=== PATIENT | female | born 1970 | race American Indian/Alaskan Native ===

== ENCOUNTER 2016-10-04 21:53 | Emergency (ER) | payer BC | END 2016-10-05 00:36 | disposition left against medical advice (07) | LOC: ED 21:53 | DX: R22.0 Localized swelling, mass and lump, head (principal); Z53.21 Procedure and treatment not carried out due to patient leaving prior to being seen by health care provider ==

== ENCOUNTER 2019-11-19 10:35 | Emergency (ER) | payer BC, OTHER ==
[2019-11-19] MEDS ORDERED: MORPHINE 4 MG/1 ML INJ IV ONE (11:21)
[2019-11-19] MEDS ORDERED: SODIUM CHLORIDE 0.9% 1000 ML 1,000 ML IV ONE (11:21)
[2019-11-19] MEDS ORDERED: ONDANSETRON 4 MG/2 ML INJ IV ONE (11:21)
--- NOTE | 2019-11-19 11:24 | Emergency Department Report ---
ED Abdominal Pain HPI - General Chief Complaint: Abdominal Pain Stated Complaint: VOMITING DIARRHEA ABD PAIN Time Seen by Provider: 11/19/19 11:18 Source: patient Mode of arrival: Ambulatory Limitations: No Limitations - History of Present Illness Initial Comments: Patient is 48 years old female with history of lupus. Patient presented to the ER with abdominal pain, nausea vomiting and diarrhea started all of a sudden last night. Patient described her abdominal pain as diffuse crampy in nature with no radiation. Patient denied any fever or chills. No chest pain or shortness of breath. MD Complaint: abdominal pain -: Last night Location: diffuse Radiation: none Migration to: no migration Severity scale (0 -10): 10 Quality: cramping Consistency: constant - Related Data Allergies Allergy/AdvReac Type Severity Reaction Status Date / Time No Known Allergies Allergy Unverified 10/21/15 08:51 ED Review of Systems ROS: Stated complaint: VOMITING DIARRHEA ABD PAIN Other details as noted in HPI Comment: All other systems reviewed and negative Constitutional: denies: chills, fever Respiratory: denies: cough, shortness of breath, SOB with exertion Cardiovascular: denies: chest pain, palpitations Gastrointestinal: abdominal pain, nausea, vomiting, diarrhea Neurological: denies: headache, weakness, numbness, paresthesias, confusion, abnormal gait ED Past Medical Hx - Past Medical History Previous Medical History?: Yes Additional medical history: Lupus - Surgical History Past Surgical History?: No - Social History Smoking Status: Current Every Day Smoker Substance Use Type: Alcohol ED Physical Exam - General Limitations: No Limitations General appearance: alert, in distress (Secondary to pain.) - Head Head exam: Present: atraumatic, normocephalic, normal inspection - Eye Eye exam: Present: normal appearance - ENT ENT exam: Present: normal exam, normal orophraynx, mucous membranes moist - Neck Neck exam: Present: normal inspection, full ROM. Absent: tenderness, meningismus, lymphadenopathy, thyromegaly - Respiratory Respiratory exam: Present: normal lung sounds bilaterally - Cardiovascular Cardiovascular Exam: Present: regular rate, normal rhythm, normal heart sounds - GI/Abdominal GI/Abdominal exam: Present: soft, normal bowel sounds. Absent: distended, tenderness, guarding, rebound, rigid, organomegaly, mass, bruit, pulsatile mass, hernia - Extremities Exam Extremities exam: Present: normal inspection, full ROM, normal capillary refill. Absent: tenderness, pedal edema, joint swelling, calf tenderness - Back Exam Back exam: Present: normal inspection, full ROM. Absent: CVA tenderness (R), CVA tenderness (L) - Neurological Exam Neurological exam: Present: alert, oriented X3, CN II-XII intact, normal gait, reflexes normal - Psychiatric Psychiatric exam: Present: normal mood - Skin Skin exam: Present: warm, intact, normal color ED Course Vital Signs 11/19/19 11/19/19 11/19/19 10:44 11:29 12:04 Temperature 97.8 F Pulse Rate 87 Respiratory 22 22 20 Rate Blood Pressure 152/126 Blood Pressure [Left] O2 Sat by Pulse 96 Oximetry 11/19/19 11/19/19 12:46 14:13 Temperature 98.7 F Pulse Rate 70 58 L Respiratory 22 18 Rate Blood Pressure Blood Pressure 130/68 139/71 [Left] O2 Sat by Pulse 98 98 Oximetry ED Medical Decision Making - Lab Data Result diagrams: 11/19/19 11:09 11/19/19 11:09 - Radiology Data Radiology results: report reviewed - Medical Decision Making Patient is 48 years old female with history of lupus. Patient presented to the ER with abdominal pain, nausea vomiting and diarrhea started all of a sudden last night. Patient described her abdominal pain as diffuse crampy in nature with no radiation. Patient denied any fever or chills. No chest pain or shortness of breath. Patient stated that she is feeling much better. Nausea completely resolved. Labs reviewed and is unremarkable. CT abdomen and pelvis is negative for acute finding. Patient given prescription for Zofran and advised to follow-up with her primary care physician in the next 2 to 3 days and to return to the ER if she develop any new symptoms. Critical care attestation.: If time is entered above; I have spent that time in minutes in the direct care of this critically ill patient, excluding procedure time. ED Disposition Clinical Impression: Abdominal pain, Nausea & vomiting Disposition: - TO HOME OR SELFCARE Is pt being admited?: No Condition: Stable Instructions: Abdominal Pain (ED) Referrals: PRIMARY CARE, [Primary Care Provider] - 3-5 Days
[2019-11-19 11:45] LABS: Basophils # (Auto) 0.1 K/mm3 (0.0-0.1); Basophils % (Auto) 1.1 % (0.0-1.8); Eosinophils % (Auto) 0.2 % (0.0-4.3); Hematocrit 37.4 % (30.3-42.9); Hemoglobin 12.3 gm/dl (10.1-14.3); Lymphocytes % (Auto) 29.5 % (13.4-35.0); Mean Corpuscular HGB Conc 33 % (30-34); Mean Corpuscular Volume 92 fl (79-97); Monocytes # (Auto) 0.5 K/mm3 (0.0-0.8); Monocytes % (Auto) 7.7 % (0.0-7.3); Platelet Count 339 K/mm3 (140-440); Red Blood Count 4.08 M/mm3 (3.65-5.03); Red Cell Distribution Width 13.7 % (13.2-15.2)
[2019-11-19] MEDS ORDERED: METOCLOPRAMIDE 10 MG/2 ML INJ IV ONE (11:46)
[2019-11-19] MEDS ORDERED: fentaNYL 250 MCG/5 ML INJ IV ONE (11:46)
[2019-11-19 12:00] LABS: Alanine Aminotransferase 12 units/L (7-56); Albumin 4.6 g/dL (3.9-5); BUN/Creatinine Ratio 11; Blood Urea Nitrogen 8 mg/dL (7-17); Hemolysis Index 13
[2019-11-19] MEDS ORDERED: fentaNYL 100 MCG/2 ML INJ IV ONE (12:00)
[2019-11-19] MEDS ORDERED: PANTOPRAZOLE 40 MG INJ IV ONE (12:02)
--- NOTE | 2019-11-19 12:58 | Cat Scan Report ---
CT ABDOMEN AND PELVIS WITH IV CONTRAST INDICATION: Left upper abdominal pain. TECHNIQUE: Following the administration of intravenous contrast, multiple axial CT images of the abdo men and pelvis were acquired. Sagittal and coronal reformats were obtained. All CT performed at this facility utilize dose reduction techniques including automated exposure control, iterative reconstru ction and weight based dosing when appropriate to reduce patient radiation dose to as low as reasonab ly achievable. COMPARISON: No prior studies are available for comparison. FINDINGS: Limited imaging of the bilateral lung bases demonstrates no acute abnormality. Abdomen: The liver, gallbladder, spleen, pancreas, bilateral adrenal glands and bilateral kidneys colin w no evidence of acute abnormality. There is no evidence of bowel obstruction or free air. The append ix is visualized and appears normal. Pelvis: There is a small amount of endometrial fluid. The urinary bladder appears grossly normal. No large amount of free pelvic fluid is visualized. Bones and Soft Tissues: Evaluation of bony and soft tissue structures demonstrates no evidence of acu te abnormality. IMPRESSION: 1. No CT evidence of acute inflammatory or obstructive process within the abdomen or pelvis. 2. Small amount of endometrial fluid. Signer Name: Diana Lind MD Signed: 11/19/2019 12:53 PM Workstation Name: [id number]
[2019-11-19 14:39] LABS: Bilirubin,Urine NEG (Negative); Blood,Urine NEG (Negative); Color,Urine Straw (Yellow); Protein,Urine <15 mg/dL mg/dL (Negative); Urobilinogen,Urine < 2.0 mg/dL (<2.0)
[2019-11-19 15:22] VITALS: BP 139/60
== END 2019-11-19 15:21 | disposition home or self-care (01) ==
LOC: ED 10:35
DX: R10.84 Generalized abdominal pain (principal); R11.2 Nausea with vomiting, unspecified; F17.200 Nicotine dependence, unspecified, uncomplicated
CPT/HCPCS: 36415; 74177; 80053; 81001; 83690; 84484; 85025; 93005; 93010; 96361; 96374; 96375; 99284; C9113; J2270; J2405; J2765; J3010; J7030; Q9967

== ENCOUNTER 2020-08-09 14:03 | Outpatient (CLI) | payer OTHER | END 2020-08-09 14:04 | disposition home or self-care (01) | LOC: LABHHL 14:03 | PROVIDERS: ATTEND Surgery | DX: N60.01 Solitary cyst of right breast (principal) | CPT/HCPCS: 87075; 87116 ==

== ENCOUNTER 2020-08-14 12:55 | Outpatient (CLI) | payer OTHER ==
--- NOTE | 2020-08-14 15:08 | Ultrasound Report ---
ULTRASOUND-GUIDED LEFT BREAST ASPIRATION INDICATION: Recent history of sudden development of breast swelling, pain, and tenderness. Aspiration was performed last week by Dr. Chapman. Known abscess. Continued pain and swelling. Near the end o f a course of antibiotic therapy. COMPARISON: Left breast ultrasound 08/09/2020, 08/05/2020 CONSENT: Procedure was discussed at length in advance with the patient. Possible risks and benefits w ere discussed including the possibility of bleeding. Postbiopsy care was discussed. Opportunity for q uestions was provided. Patient is not on anticoagulant therapy. Patient reports allergies only to lat ex. PROCEDURE: Timeout was performed. The retroareolar superficial collection with significant internal d ebris was targeted sonographically. This was shown to measure approximately 3.9 cm in greatest diamet er. Using aseptic technique and under local anesthesia, with real-time sonographic guidance, the area of interest was aspirated using an 18-gauge needle. An initial lateral approach extended into the co llection but resulted in only minimal aspirate though this was seen to be frankly purulent. On remova l of the needle, there was a small amount of drainage through the tract of this purulent material. A second approach was made from a superior direction, again extending well into the collection. Approxi mately 3 cc of mixed purulent material with blood was aspirated with difficulty. No additional aspira tion could be performed despite variation in needle tip placement in multiple areas of the collection . Substantial collection remained after the procedure. Aspirate was placed into a sterile test tube a nd sent to pathology for Gram stain and culture and sensitivity. Site was secured. Patient tolerated the procedure well and left the department in good condition without obvious complication. IMPRESSION: Successful ultrasound-guided left breast aspiration Signer Name: Iglesia Giron MD Signed: 08/14/2020 3:04 PM Workstation Name: [id number]
== END 2020-08-14 12:56 | disposition home or self-care (01) ==
LOC: SPVWC 12:55
PROVIDERS: ATTEND Surgery
DX: N61.0 Mastitis without abscess (principal); N60.02 Solitary cyst of left breast; F17.210 Nicotine dependence, cigarettes, uncomplicated; Z79.899 Other long term (current) drug therapy
CPT/HCPCS: 87116; 88112

== ENCOUNTER 2021-04-30 12:32 | Outpatient (CLI) | payer OTHER ==
--- NOTE | 2021-05-01 08:23 | Mammography Report ---
DIGITAL SCREENING MAMMOGRAM WITH TOMOSYNTHESIS WITH CAD, 04/30/2021 CLINICAL INFORMATION / INDICATION: Routine Screening Mammography. TECHNIQUE: Digital bilateral 2D and 3D mammography with tomosynthesis was obtained in the craniocaud al and mediolateral oblique projections. Computer-Aided Detection (CAD) analysis was used for interp retation of this study. COMPARISON: 10/21/2015 FINDINGS: Breast Density: There are scattered areas of fibroglandular density. No dominant mass, suspicious calcifications, or architectural distortion in either breast. No interval change. IMPRESSION: No mammographic evidence of malignancy. Follow up recommendation: Routine yearly BI-RADS Category 1: Negative. A "normal" or negative report should not discourage follow up or biopsy of a clinically significant f inding. A written summary of these findings will be mailed to the patient. The patient will be entered into a mammography reporting system which will generate a reminder letter for the patient's next appointmen t at the appropriate interval. The [employer] recommends yearly mammograms starting at age 40 and continuing as l eduardo as a woman is in good health. Breast MRI is recommended for women with an approximate 20-25% or greater lifetime risk of breast cancer, including women with a strong family history of breast or ova kana cancer or who have been treated for Hodgkin's disease. Signer Name: Nicole Lopez MD Signed: 05/01/2021 8:19 AM Workstation Name: [id number]
== END 2021-04-30 12:33 | disposition home or self-care (01) ==
LOC: SPVWC 12:32
PROVIDERS: ATTEND Surgery
DX: Z12.31 Encounter for screening mammogram for malignant neoplasm of breast (principal)
CPT/HCPCS: 77063; 77067